=== PATIENT | female | born 1985 | race African-American/Black ===

== ENCOUNTER 2020-10-26 13:14 | Emergency (ER) | payer OTHER ==
[2020-10-26 13:32] VITALS: BP 114/63; PULSE 83; TEMP 98.1; BMI 29.8
== END 2020-10-26 15:14 | disposition home or self-care (01) ==
LOC: JER 13:14
DX: R05 Cough (principal); R09.81 Nasal congestion; Z11.52 Encounter for screening for COVID-19
CPT/HCPCS: 71046-TC-FY; 99284-25; C9803; U0003; U0005